=== PATIENT | female | born 1980 | race American Indian/Alaskan Native ===

== ENCOUNTER 2023-03-21 09:57 | Outpatient (CLI) | payer OTHER, SELFPAY | END 2023-03-21 09:58 | disposition home or self-care (01) | PROVIDERS: PCP Family Medicine; Visit Provider Family Medicine | DX: Z13.29 Encounter for screening for other suspected endocrine disorder (principal) | CPT/HCPCS: 80053; 82728; 84443; 86039; 86140 ==

== ENCOUNTER 2023-09-17 08:00 | Outpatient (CLI) | payer OTHER, SELFPAY ==
--- NOTE | 2023-09-17 08:15 | CRLHL7_ITS ---
For Patients: As a result of the Century Cures Act, medical imaging exams and procedure reports are released immediately into your electronic medical record. You may view this report before your referring provider. If you have questions, please contact your health care provider. BILATERAL SCREENING MAMMOGRAM WITH COMPUTER-AIDED DETECTION AND TOMOSYNTHESIS TECHNIQUE: CC and MLO views were obtained. These mammographic images have been obtained using full-field digital technique. These mammographic images were interpreted with the benefit of computer-aided detection. Breast Tomosynthesis was used in this interpretation. COMPARISON FILM: Baseline. FINDINGS: The breasts are heterogeneously dense, which may obscure small masses IMPRESSION: There is no radiographic evidence for malignancy. ASSESSMENT: BI-RADS Category 1: Negative RECOMMENDATION: Routine screening mammogram in 1 year. A lay language report of this examination will be provided to the patient. Saud Strong M.D. Diagnostic Radiologist [email or web address] Transcribed: 2:09 p.orion orantes/Dictated by: Saud Strong MD @ 09/17/2023 9:42:00 AM (Electronically Signed)
== END 2023-09-17 08:01 | disposition home or self-care (01) ==
LOC: MAMMO 08:01
PROVIDERS: PCP Family Medicine; Visit Provider Family Medicine
DX: Z12.31 Encounter for screening mammogram for malignant neoplasm of breast (principal); R92.2 Inconclusive mammogram
CPT/HCPCS: 77063; 77067

== ENCOUNTER 2023-09-23 14:56 | Outpatient (CLI) | payer OTHER, SELFPAY | END 2023-09-23 14:57 | disposition home or self-care (01) | PROVIDERS: PCP Family Medicine; Visit Provider Family Medicine | DX: R29.898 Other symptoms and signs involving the musculoskeletal system (principal) | CPT/HCPCS: 86140; 86200; 86431; 86812 ==

== ENCOUNTER 2023-10-01 09:00 | Outpatient (CLI) | payer OTHER, SELFPAY ==
--- NOTE | 2023-10-01 09:15 | CRLHL7_ITS ---
For Patients: As a result of the Century Cures Act, medical imaging exams and procedure reports are released immediately into your electronic medical record. You may view this report before your referring provider. If you have questions, please contact your health care provider. INDICATION: Right hand weakness, arm numbness and dysphasia. TECHNIQUE: Brain MRI with and without contrast. 12 cc gadolinium based contrast administered. COMPARISON: None. FINDINGS: No evidence of acute ischemia. No evidence of acute or chronic intracranial blood products. No mass or pathologic intracranial enhancement. A few punctate FLAIR hyperintensity scattered within the supratentorial white matter, nonspecific. No hydrocephalus or extra-axial collections. The pituitary gland, parasellar structures and optic chiasm are normal. Posterior fossa is normal. All the major intracranial vascular structures demonstrate normal flow-related signal. The orbital contents are normal. No calvarial or skull base marrow signal abnormality. No obstructive sinus disease. No extracranial soft tissue findings. IMPRESSION: 1. No acute infarction or other acute intracranial pathology. 2. No mass or pathologic intracranial enhancement. 3. A few small FLAIR hyperintense foci scattered within the supratentorial white matter. Nonspecific with primary considerations including chronic microvascular ischemic change, sequela of migraine headaches or gliosis from remote inflammation. The appearance of these lesions is not classic for demyelinating plaques of multiple sclerosis, although this is not completely excluded in the appropriate clinical setting. Dictated by Roger Farrar MD @ 10/01/2023 12:08:39 PM (Electronically Signed)
== END 2023-10-01 09:01 | disposition home or self-care (01) ==
PROVIDERS: PCP Family Medicine; Visit Provider Family Medicine
DX: R29.898 Other symptoms and signs involving the musculoskeletal system (principal); Z82.0 Family history of epilepsy and other diseases of the nervous system
CPT/HCPCS: 70553; A9575

== ENCOUNTER 2024-02-14 07:54 | Outpatient (CLI) | payer OTHER, SELFPAY ==
--- NOTE | 2024-02-14 08:00 | CRLHL7_ITS ---
For Patients: As a result of the Century Cures Act, medical imaging exams and procedure reports are released immediately into your electronic medical record. You may view this report before your referring provider. If you have questions, please contact your health care provider. Indication: CHRONIC PAIN DUE TO TRAUMA Technique: Pelvis and left hip 3 views Comparison: None Findings: Bones: Alignment is normal. No fractures or bone lesions. Joint spaces: Joint spaces are preserved. No degenerative changes. Soft tissues: IUD is present. Impression: No findings to explain pain. Dictated by Saud Strong MD @ 02/25/2024 10:51:46 AM (Electronically Signed)
== END 2024-02-14 07:55 | disposition home or self-care (01) ==
PROVIDERS: PCP Family Medicine; Visit Provider Family Medicine
DX: M79.605 Pain in left leg (principal); G89.21 Chronic pain due to trauma
CPT/HCPCS: 73502

== ENCOUNTER 2024-03-23 09:45 | Outpatient (RCR) | payer BC, SELFPAY | END 2024-07-21 23:59 | disposition home or self-care (01) | PROVIDERS: PCP Family Medicine; Visit Provider Family Medicine | DX: M79.604 Pain in right leg (principal); M79.605 Pain in left leg; M25.552 Pain in left hip; R10.32 Left lower quadrant pain; Z51.89 Encounter for other specified aftercare | CPT/HCPCS: 97110; 97140; 97161 ==

== ENCOUNTER 2024-04-08 15:16 | Outpatient (CLI) | payer BC, SELFPAY ==
--- NOTE | 2024-04-08 15:30 | CRLHL7_ITS ---
For Patients: As a result of the Century Cures Act, medical imaging exams and procedure reports are released immediately into your electronic medical record. You may view this report before your referring provider. If you have questions, please contact your health care provider. EXAM: MRI OF THE LEFT HIP, WITHOUT CONTRAST CLINICAL INDICATION: Hip pain. PRIOR SURGERY: None. COMPARISON PLAIN FILMS: 14 February 2024 COMPARISON CROSS-SECTIONAL IMAGING STUDIES: None. TECHNICAL: Axial, sagittal and coronal PDFS small field of view images of the hip. Coronal and axial T1 and PDFS large field of view images of the entire pelvis. FINDINGS: LEFT HIP: Effusion: No significant joint effusion, synovial hypertrophy or synovitis. Articular Cartilage/Surfaces: Articular surfaces appear smooth without focal chondral defect or subchondral marrow changes. Labrum: Normal. Joint Bodies: None seen. Proximal Femoral Morphology: No significant osseous bump. Femoral head-neck offset is within normal limits. Acetabular Morphology: No focal or global retroversion. No significant overcoverage. AVN: Not present. RIGHT HIP: On the large field of view images of the entire pelvis, the contralateral hip joint is maintained. OSSEOUS STRUCTURES: No fracture, marrow edema or marrow replacement process. MUSCULOTENDINOUS STRUCTURES AND BURSAE: Tendons and visualized musculotendinous units are intact. No muscle atrophy, or edema to suggest strain changes. No trochanteric or iliopsoas bursitis. INTRAPELVIC CONTENTS: No mass, fluid collection or adenopathy. No inguinal hernia. IUD. NEUROVASCULAR STRUCTURES: No abnormality involving the visualized sacral nerve roots or proximal femoral or proximal sciatic nerves. No aneurysmal dilation of the visualized distal aorta or iliac arterial circulation. IMPRESSION: 1. Negative MR of the left hip. 2. 3. 4. 5. 6. Dictated by Darryl Quach MD @ 04/09/2024 10:10:07 AM (Electronically Signed)
== END 2024-04-08 15:17 | disposition home or self-care (01) ==
LOC: MRI 15:17
PROVIDERS: PCP Family Medicine; Visit Provider Family Medicine
DX: M25.552 Pain in left hip (principal)
CPT/HCPCS: 73721

== ENCOUNTER 2024-08-24 12:10 | Outpatient (CLI) | payer BC, SELFPAY | END 2024-08-24 12:11 | disposition home or self-care (01) | LOC: FRMREF 12:11 | PROVIDERS: PCP Family Medicine; Visit Provider Family Medicine | DX: I10 Essential (primary) hypertension (principal); Z01.818 Encounter for other preprocedural examination | CPT/HCPCS: 80048 ==

== ENCOUNTER 2024-12-17 11:27 | Outpatient (CLI) | payer BC, SELFPAY | END 2024-12-17 11:28 | disposition home or self-care (01) | PROVIDERS: PCP Family Medicine; Visit Provider Family Medicine | DX: G89.29 Other chronic pain (principal); I10 Essential (primary) hypertension; Z00.00 Encounter for general adult medical examination without abnormal findings | CPT/HCPCS: 80053; 80061; 82043; 82550; 82570; 86803 ==